=== PATIENT | female | born 1950 | race Caucasian/White ===

== ENCOUNTER 2019-03-02 08:23 | Day surgery (SDC) | payer MEDICARE, OTHER ==
[2019-03-02] VITALS (10 sets, daily range): BP systolic 102–143; BP diastolic 52–73; PULSE 55–72; RESP 14–22; Ht 152.4 cm; Wt 86.1 kg
[~2019-03-02] VITALS: Ht 152.4 cm; Wt 86.1 kg
[~2019-03-02 08:23] MED LIST: AMLO-147 PO; ATEN-51 ORAL; BACL10TA PO; DIGO250T ORAL; ERGO500013 ORAL; ESOM40CA PO; MECL-77 PO; MELO7.5O PO; OLME5TAB4 PO; RIVA20TA5 ORAL; RSV10T PO
[2019-03-02] MEDS ORDERED: MIDAZOLAM 1 MG/ML 2 ML INJ ONE (09:15)
[2019-03-02] MEDS ORDERED: FENTAnyl 50 MCG/ML VIAL ONE (09:15)
[2019-03-02] MEDS ORDERED: HEPARIN 1000 UNITS/ML 10 ML INJ ONE (09:16)
[2019-03-02] MEDS ORDERED: LIDOCAINE 1%/EPI 30 ML INJ ONE (09:17)
[2019-03-02] MEDS ORDERED: CEFAZOLIN 1 GM/50 ML (PMX) 50 ML IVPB ONE (09:55)
== END 2019-03-02 12:20 | disposition home or self-care (01) ==
LOC: SDS 08:23
PROVIDERS: ATTEND Radiology Diagnostic Radiology
DX: C50.911 Malignant neoplasm of unspecified site of right female breast (principal); I10 Essential (primary) hypertension; I48.91 Unspecified atrial fibrillation
CPT/HCPCS: 36561; 76942; J0690; J1644; J2250; J3010; 76937

== ENCOUNTER 2019-03-03 09:47 | Emergency (ER) | payer MEDICARE, OTHER ==
[~2019-03-03] VITALS: Ht 154.9 cm; Wt 80.0 kg
[~2019-03-03 09:47] MED LIST changes: -AMLO-147 PO; -BACL10TA PO; -MECL-77 PO; -MELO7.5O PO
[2019-03-03] MEDS ORDERED: SOD CHLORIDE 0.9% 1,000 ML IV STA (09:58)
[2019-03-03 10:01] VITALS: Ht 154.9 cm; Wt 80.0 kg
[2019-03-03 12:20] VITALS: BP 132/88; PULSE 78; RESP 18
== END 2019-03-03 12:21 | disposition home or self-care (01) ==
LOC: E/R 09:47
DX: R55 Syncope and collapse (principal); I11.0 Hypertensive heart disease with heart failure; I50.9 Heart failure, unspecified; R20.2 Paresthesia of skin; I48.91 Unspecified atrial fibrillation; Z79.01 Long term (current) use of anticoagulants; Z85.3 Personal history of malignant neoplasm of breast
CPT/HCPCS: 36415; 71045; 80048; 81003; 84484; 85025; 85610; 93005; 96360; 96361; 99285; J7030